=== PATIENT | female | born 1935 | race Caucasian/White ===

== ENCOUNTER 2021-08-22 11:25 | Observation (INO) | payer MEDICARE ==
[~2021-08-22] VITALS: Ht 162.6 cm; Wt 70.3 kg
[2021-08-22 11:51] LABS: BASOPHILS % (AUTO) 0.5 % (0.0-5.0); HEMATOCRIT 41.5 % (36-48); MEAN CORPUSCULAR HGB CONC 33.7 g/dL (32.0-36.0); MEAN CORPUSCULAR VOLUME 89.1 fL (79-99); MONOCYTES % (AUTO) 14.2 % (3.0-13.0); PLATELET COUNT (AUTO) 190 K/uL (130-400); RED BLOOD CELL COUNT(AUTO) 4.66 MIL/uL (4.00-5.50); WHITE BLOOD COUNT (AUTO) 6.1 K/uL (4.8-10.8)
[2021-08-22 12:00] LABS: POTASSIUM 4.6 mmol/L (3.5-5.1)
[2021-08-22] MEDS ORDERED: PANTOPRAZOLE 40 MG/VIAL IVP ONE (12:00)
[2021-08-22 12:01] LABS: INR 1.07 (0.85-1.15); PROTHROMBIN TIME 11.6 SEC (9.6-11.6)
[2021-08-22 12:03] LABS: PARTIAL THROMBOPLASTIN TIME 23.9 SEC (26.3-35.5)
[2021-08-22 12:08] LABS: B-TYPE NATRIURETIC PEPTIDE 62 pg/mL (0-100)
[2021-08-22 12:20] LABS: ALBUMIN 3.9 g/dL (3.5-5.0); BILIRUBIN,TOTAL 0.9 mg/dL (0.2-1.0); MAGNESIUM 2.1 mg/dL (1.80-2.40); TOTAL PROTEIN, SERUM 8.3 g/dL (6.0-8.3)
[2021-08-22] MEDS ORDERED: IOHEXOL 350 MG/ML 100ML INFUS..BTL IV ONE (13:38)
[2021-08-22 16:38] LABS: HEMOGLOBIN A1C 5.7 % (4.0-6.0)
[2021-08-22 22:57] VITALS: BP 138/78
[2021-08-23 03:45] VITALS: BP 117/78
[2021-08-23] MEDS ORDERED: ONDANSETRON 4MG INJ IVP PRN (07:30)
[2021-08-23] MEDS ORDERED: ACETAMINOPHEN 325 MG TAB PO PRN (07:30)
[2021-08-23 07:54] VITALS: BP 148/57
[2021-08-23 08:00] VITALS: BP 148/57
[2021-08-23] MEDS ORDERED: ENOXAPARIN SODIUM 40 MG/0.4 ML SYRINGE SQ SCH (09:00)
[2021-08-23] MEDS ORDERED: PHARMACY COMMUNICATION MISC SCH (10:00)
[2021-08-23] MEDS ORDERED: PANTOPRAZOLE 40 MG TAB DR PO SCH (10:12)
[2021-08-23] MEDS ORDERED: COMPOUND PO MISCELLANEOUS 1 EACH MISC MISC PRN (10:30)
[2021-08-23] MEDS ORDERED: LIDO 2% VISC 30ML+MAG/AL/SIMETH 30ML+DICYCLOMINE 20MG 10ML PO PRN ×6 (10:30)
[2021-08-23 12:00] VITALS: BP 130/68
== END 2021-08-23 16:00 | disposition home or self-care (01) ==
LOC: EDH 11:25 → EDHIP 15:04 → 2DH 22:31
PROVIDERS: ADMIT Internal Medicine; ATTEND Internal Medicine
DX: R07.89 Other chest pain (principal); I48.91 Unspecified atrial fibrillation; Z79.899 Other long term (current) drug therapy; Z98.890 Other specified postprocedural states
CPT/HCPCS: 36415; 71045; 71275; 80053; 80061; 82550; 83036; 83735; 83874; 83880; 84443; 84484 ×3; 85025; 85378; 85610; 85730; 93005 ×2; 93970; 96372; 96374; 99285; C9113; G0378 ×25; J1650; Q9967

== ENCOUNTER 2021-09-07 11:50 | Emergency (ER) | payer MEDICARE ==
[~2021-09-07] VITALS: Ht 157.5 cm; Wt 70.3 kg
[2021-09-07] MEDS ORDERED: LIDOCAINE HCL 2% VISCOUS 15 ML UDCUP PO ONE (12:30)
[2021-09-07] MEDS ORDERED: DICYCLOMINE HCL 10 MG/5 ML ML PO ONE (12:30)
[2021-09-07] MEDS ORDERED: FAMOTIDINE 20MG VIAL IV ONE (12:30)
[2021-09-07] MEDS ORDERED: MAG/ALUM/SIMETH 30 ML UDCUP PO ONE (12:30)
[2021-09-07] MEDS ORDERED: LORAZEPAM 2 MG/ML 1 ML VIAL IVP ONE (12:30)
[2021-09-07 12:43] LABS: APPEARANCE,URINE Cloudy (CLEAR); BILIRUBIN,URINE Negative (NEGATIVE); COLOR,URINE Yellow (YELLOW); GLUCOSE, URINE (UA) Negative (NEGATIVE); KETONES,URINE Negative (NEGATIVE); LEUKOCYTE ESTERASE ,URINE Negative (NEGATIVE); NITRATE,URINE Negative (NEGATIVE); OCCULT BLOOD,URINE Small (NEGATIVE); PROTEIN,URINE Trace mg/dL (NEGATIVE)
[2021-09-07 13:05] LABS: BASOPHILS % (AUTO) 0.3 % (0.0-5.0); EOSINOPHILS % (AUTO) 0.5 % (0.0-8.0); HEMATOCRIT 38.5 % (36-48); LYMPHOCYTES % (AUTO) 16.9 % (21.0-51.0); MEAN CORPUSCULAR HEMOGLOBIN 30.1 pg (27.0-33.0); MEAN CORPUSCULAR HGB CONC 33.8 g/dL (32.0-36.0); MEAN CORPUSCULAR VOLUME 89.1 fL (79-99); MONOCYTES % (AUTO) 16.2 % (3.0-13.0); NEUTROPHILS % (AUTO) 65.8 % (40.0-77.0); PLATELET COUNT (AUTO) 239 K/uL (130-400); RED BLOOD CELL COUNT(AUTO) 4.32 MIL/uL (4.00-5.50); RED CELL DISTRIBUTION WIDTH 12.3 % (11.0-15.5)
[2021-09-07 13:31] LABS: RBC,URINE 0-1 /HPF (0-1)
[2021-09-07 13:32] LABS: BACTERIA,URINE Many /HPF (None Seen); WBC,URINE 0-1 /HPF (0-1)
[2021-09-07 13:35] LABS: B-TYPE NATRIURETIC PEPTIDE 141 pg/mL (0-100)
[2021-09-07 13:46] LABS: ALBUMIN 3.5 g/dL (3.5-5.0); CREATININE 0.8 mg/dL (0.5-1.5); TOTAL PROTEIN, SERUM 8.8 g/dL (6.0-8.3)
[2021-09-07] MEDS ORDERED: ACET-2247 PO (13:54)
[2021-09-07] MEDS ORDERED: CEPH500B PO (13:54)
[2021-09-07] MEDS ORDERED: KETOROLAC 15MG/ML VIAL (15MG/ML) IV ONE (14:00)
[2021-09-07] MEDS ORDERED: CEFTRIAXONE 1G VIAL IVP ONE (14:00)
[2021-09-07 14:55] VITALS: BP 135/74
== END 2021-09-07 14:56 | disposition home or self-care (01) ==
LOC: EDH 11:50
DX: N39.0 Urinary tract infection, site not specified (principal); K21.9 Gastro-esophageal reflux disease without esophagitis; Z88.0 Allergy status to penicillin; Z90.49 Acquired absence of other specified parts of digestive tract
CPT/HCPCS: 36415; 71045; 76705; 80053; 81001; 83690; 83880; 84484; 85025; 87088; 93005 ×2; 96374; 96375; 99285; J0696; J1885; J2060; J3490

== ENCOUNTER 2021-11-04 10:33 | Emergency (ER) | payer MEDICARE ==
[~2021-11-04] VITALS: Ht 154.9 cm; Wt 68.0 kg
[~2021-11-04 10:33] MED LIST: ACET-2247 PO; CEPH500B PO
[2021-11-04 11:05] LABS: APPEARANCE,URINE Clear (CLEAR); BILIRUBIN,URINE Negative (NEGATIVE); COLOR,URINE Yellow (YELLOW); GLUCOSE, URINE (UA) Negative (NEGATIVE); KETONES,URINE Negative (NEGATIVE); LEUKOCYTE ESTERASE ,URINE Trace (NEGATIVE); NITRATE,URINE Negative (NEGATIVE); OCCULT BLOOD,URINE Negative (NEGATIVE); PH,URINE 5.5 (5.0-8.0); PROTEIN,URINE Negative (NEGATIVE); UROBILINOGEN,URINE 0.2 mg/dL (0.2-1.0)
[2021-11-04 11:13] LABS: BASOPHILS % (AUTO) 0.3 % (0.0-5.0); EOSINOPHILS % (AUTO) 2.3 % (0.0-8.0); HEMATOCRIT 38.4 % (36-48); LYMPHOCYTES % (AUTO) 23.8 % (21.0-51.0); MEAN CORPUSCULAR HEMOGLOBIN 29.1 pg (27.0-33.0); MEAN CORPUSCULAR HGB CONC 33.6 g/dL (32.0-36.0); MEAN CORPUSCULAR VOLUME 86.7 fL (79-99); MONOCYTES % (AUTO) 14.8 % (3.0-13.0); NEUTROPHILS % (AUTO) 58.6 % (40.0-77.0); PLATELET COUNT (AUTO) 220 K/uL (130-400); RED BLOOD CELL COUNT(AUTO) 4.43 MIL/uL (4.00-5.50); RED CELL DISTRIBUTION WIDTH 12.6 % (11.0-15.5)
[2021-11-04 11:20] LABS: BACTERIA,URINE Few /HPF (None Seen); RBC,URINE None Seen /HPF (0-1)
[2021-11-04 11:22] LABS: ALBUMIN 3.9 g/dL (3.5-5.0); BILIRUBIN,TOTAL 0.6 mg/dL (0.2-1.0); CREATININE 1.1 mg/dL (0.5-1.5); POTASSIUM 4.2 mmol/L (3.5-5.1); TOTAL PROTEIN, SERUM 8.9 g/dL (6.0-8.3)
[2021-11-04] MEDS ORDERED: IOHEXOL-350 75 ML VIAL IV ONE (12:30)
[2021-11-04] MEDS ORDERED: NAPR-1196 PO (14:13)
[2021-11-04 14:40] VITALS: BP 123/56
[2021-11-04] MEDS: KETOROLAC 30MG VIAL (30MG/ML) IVP ONE (14:48)
== END 2021-11-04 14:50 | disposition home or self-care (01) ==
LOC: EDH 10:33
DX: S29.012A Strain of muscle and tendon of back wall of thorax, initial encounter (principal); M19.90 Unspecified osteoarthritis, unspecified site; Z88.0 Allergy status to penicillin; Z98.890 Other specified postprocedural states; X58.XXXA Exposure to other specified factors, initial encounter; Y93.89 Activity, other specified; Y92.89 Other specified places as the place of occurrence of the external cause; Y99.8 Other external cause status
CPT/HCPCS: 36415; 71275; 80053; 81001; 82550; 84484; 85025; 85378; 93005; 96374; 99285; J1885; Q9967

== ENCOUNTER → 2021-12-16 | Outpatient (CLI) | payer MEDICARE ==
[~2021-12-16] MED LIST changes: +NAPR-1196 PO
== END | disposition home or self-care (01) ==
LOC: RAH 07:41
PROVIDERS: ATTEND Family Medicine
DX: M51.36 Other intervertebral disc degeneration, lumbar region (principal); M47.816 Spondylosis without myelopathy or radiculopathy, lumbar region; M48.8X6 Other specified spondylopathies, lumbar region
CPT/HCPCS: 72148